=== PATIENT | male | born 1960 | race Caucasian/White ===

== ENCOUNTER 2019-07-03 06:42 | Day surgery (SDC) | payer SELFPAY ==
[~2019-07-03 06:42] MED LIST: Lactated Ringers 1,000 ML IV SCH
--- NOTE | 2019-07-03 08:03 | PCM.PREANE ---
Preanesthetic Assessment - Anesthesia/Transfusion/Family Hx Anesthesia History: Prior Anesthesia Without Reaction Family History of Anesthesia Reaction: No Transfusion History: No Prior Transfusion(s) Intubation History: Unknown - Review of Systems General: No Symptoms Pulmonary: No Symptoms Cardiovascular: No Symptoms Gastrointestinal: No Symptoms Neurological: No Symptoms Other: Reports: None - Physical Assessment Height: 5 ft 11 in Weight: 80.739 kg ASA Class: 1 Mental Status: Alert & Oriented x3 Airway Class: Mallampati = 1 Dentition: Reports: Dentures (upper) Thyro-Mental Finger Breadths: 3 Mouth Opening Finger Breadths: 3 ROM/Head Extension: Full Lungs: Clear to Auscultation, Normal Respiratory Effort Cardiovascular: Regular Rate, Regular Rhythm - Allergies Allergies/Adverse Reactions: Allergies Allergy/AdvReac Type Severity Reaction Status Date / Time meperidine [From Demerol] Allergy Redness Verified 07/03/19 07:58 - Blood Blood Available: No - Anesthesia Plan Pre-Op Medication Ordered: None - Acknowledgements Anesthesia Type Planned: MAC Pt an Appropriate Candidate for the Planned Anesthesia: Yes Alternatives and Risks of Anesthesia Discussed w Pt/Guardian: Yes Pt/Guardian Understands and Agrees with Anesthesia Plan: Yes PreAnesthesia Questionnaire HEENT History: Reports: Hard of Hearing, Other (See Below) Other HEENT History: wears glasses/contacts, upper denture Cardiovascular History: Reports: None Respiratory History: Reports: None Gastrointestinal History: Reports: None Genitourinary History: Reports: None Musculoskeletal History: Reports: Fracture Other Musculoskeletal History: hx fx ribs, wrist, collarbone and fingers Neurological History: Reports: None Psychiatric History: Reports: None Endocrine/Metabolic History: Reports: None Hematologic History: Reports: None Immunologic History: Reports: None Oncologic (Cancer) History: Reports: None Dermatologic History: Reports: None - Past Surgical History Head Surgeries/Procedures: Reports: None HEENT Surgical History: Reports: None Cardiovascular Surgical History: Reports: None Respiratory Surgical History: Reports: None GI Surgical History: Reports: None Male Surgical History: Reports: None Endocrine Surgical History: Reports: None Neurological Surgical History: Reports: None Musculoskeletal Surgical History: Reports: Arthroscopic Knee (bilateral), Other (See Below) Other Musculoskeletal Surgeries/Procedures:: ACL repair both knees (open) Oncologic Surgical History: Reports: None Dermatological Surgical History: Reports: Other (See Below) (FS biopsy of facial lesion by Dr lucas) - SUBSTANCE USE Smoking Status *Q: Former Smoker (quit ) Tobacco Use Within Last Twelve Months: No Days Per Week of Alcohol Use: 7 Number of Drinks Per Day: 2 Total Drinks Per Week: 14 - HOME MEDS Home Medications: Home Meds . [No Known Home Meds] 06/27/19 [History] - CURRENT (IN HOUSE) MEDS Current Meds: Current Medications Lactated Ringer's (Ringers, Lactated) 1,000 mls @ 125 mls/hr IV ASDIRECTED [facility] Last Admin: 07/03/19 07:58 Dose: 125 mls/hr
[2019-07-03] MEDS ORDERED: Bupivacaine 0.25% 10 ML SDV ONE (08:27)
[2019-07-03] MEDS ORDERED: Bupivacaine 0.25%/EPINEPHrine 1:200,000 10 ML SDV ONE ×2 (08:28→09:00)
[2019-07-03] MEDS ORDERED: fentaNYL 100 MCG/2 ML SDV ONE (08:41)
[2019-07-03] MEDS ORDERED: Midazolam 1 MG/ML 2 ML SDV ONE (08:41)
[2019-07-03] MEDS ORDERED: Propofol 200 MG/20 ML SDV ONE (08:41)
[2019-07-03] MEDS ORDERED: Ondansetron 4 MG/2 ML SDV ONE (08:41)
[2019-07-03] MEDS ORDERED: ceFAZolin 1 GM Vial ONE (08:48)
[2019-07-03] MEDS ORDERED: Sodium Chloride 0.9% 20 ML ONE (08:48)
--- NOTE | 2019-07-03 09:42 | PCM.OPNOTE ---
- General Post-Op/Procedure Note Date of Surgery/Procedure: 07/03/19 Operative Procedure(s): excisional biopsy face mass Findings: a mass of 2X2 cm, excised w generous 5 mm margin, plasty closing;see [id number] Pre Op Diagnosis: large face mass Post-Op Diagnosis: Same Anesthesia Technique: Moderate Sedation Primary Surgeon: Marty Loya Pathology: sent Complications: None Condition: Good
--- NOTE | 2019-07-03 11:10 | PCM.POSTAN ---
POST ANESTHESIA ASSESSMENT - MENTAL STATUS Mental Status: Alert, Oriented - VITAL SIGNS Vital Signs: Last Vital Signs Temp 36.0 C L 07/03/19 09:35 Pulse 56 L 07/03/19 09:45 Resp 16 07/03/19 09:45 BP 123/84 07/03/19 09:45 Pulse Ox 99 07/03/19 09:45 - RESPIRATORY Respiratory Status: Respiratory Rate WNL, Airway Patent, O2 Saturation Stable - CARDIOVASCULAR CV Status: Pulse Rate WNL, Blood Pressure Stable - GASTROINTESTINAL GI Status: No Symptoms - PAIN Pain Score: 0 - POST OP HYDRATION Hydration Status: Adequate & Stable - OBSERVATIONS Free Text/Narrative:: No anesthesia problems, patient skipped recovery room stage of postoperative care.
--- NOTE | 2019-07-03 11:10 | PCM48HPAN ---
Post Anesthesia Note - EVALUATION WITHIN 48HRS OF ANESTHETIC Vital Signs in Normal Range: Yes Patient Participated in Evaluation: Yes Respiratory Function Stable: Yes Airway Patent: Yes Cardiovascular Function Stable: Yes Hydration Status Stable: Yes Pain Control Satisfactory: Yes Nausea and Vomiting Control Satisfactory: Yes Mental Status Recovered: Yes Vital Signs: Last Vital Signs Temp 36.0 C L 07/03/19 09:35 Pulse 56 L 07/03/19 09:45 Resp 16 07/03/19 09:45 BP 123/84 07/03/19 09:45 Pulse Ox 99 07/03/19 09:45 - COMMENTS/OBSERVATIONS Free Text/Narrative:: No anesthesia problems
--- NOTE | 2019-07-03 16:24 | OR ---
SURGEON: Marty Loya MD DATE OF PROCEDURE: 07/03/2019 PREOPERATIVE DIAGNOSIS: Face mass. POSTOPERATIVE DIAGNOSIS: Face mass. PROCEDURES PERFORMED: 1. Excisional biopsy of the face mass. 2. Plasty repair of the wound. PRIMARY SURGEON: Marty Loya MD COMPLICATIONS: None. FINDINGS: A face mass which is about 2 cm from the right eye at the temporal area. The wound is about 4 x 2.8 cm wide and required plasty closing because of too much skin loss. DESCRIPTION OF PROCEDURE: The patient was taken to the operating room and placed in the supine position. Upon induction of mild general sedation, the patient's right temporal area and the face area and around the eye area were prepped and draped in sterile fashion. A piece of cotton was placed in the ear to protect the ear. Local anesthetic was infiltrated. A fish eye incision was made around the mass with a generous margin, 5 mm from the mass. Of course because of the close proximity to the eyelid and also was about 2 cm from the right extremity of the right eye, so extreme care was exercised to avoid getting too close to the eyelid. Local anesthetic with epi was infiltrated, and then using a 15 blade, a skin incision was made which excised the whole area and sent for pathology. The specimen was orientation marked with a long-long stitch as lateral and a short-short stitch as medial. Good hemostasis performed with hand pressure. The incision was about 4 x 2.5 cm, and because there was a lot of skin loss, the area was mobilized on the skin in order to be able to pull the skin to close. So the procedure also involved plasty closing using a 5-0 Prolene and followed with sterile strip an appropriate dressing. The patient was awakened, transferred to recovery room in hemodynamically stable condition. The patient tolerated the procedure well. There were no intraoperative complications. Dr. Loya was present through the whole procedure. MARITZA / TAMIKA /[id number] MTDMichelle
== END 2019-07-03 09:52 | disposition home or self-care (01) ==
LOC: MW.SDS 06:42
PROVIDERS: ATTEND Surgery
DX: C44.309 Unspecified malignant neoplasm of skin of other parts of face (principal); L57.0 Actinic keratosis; Z88.5 Allergy status to narcotic agent; Z87.891 Personal history of nicotine dependence
CPT/HCPCS: 11643; 88305; J0690; J2250; J2405; J2704; J3010; J3490; J7120; 00300

== ENCOUNTER 2020-09-15 17:40 | Emergency (ER) | payer SELFPAY ==
--- NOTE | 2020-09-15 18:26 | EDM.PDOC ---
ED HPI GENERAL MEDICAL PROBLEM - General Chief Complaint: Upper Extremity Injury/Pain Stated Complaint: RT SIDE COLLAR BONE BROKE Time Seen by Provider: 09/15/20 18:20 Source of Information: Reports: Patient History Limitations: Reports: No Limitations - History of Present Illness INITIAL COMMENTS - FREE TEXT/NARRATIVE: HISTORY AND PHYSICAL: History of present illness: Patient is a 60-year-old male who presents to the emergency room with complaints of right clavicle and shoulder pain. He states he went to close the tailgate on his truck when he felt a pain in the proximal clavicle and at the shoulder girdle itself. He denies any injury, trauma or falls. He states he can feel the pain radiate up into his neck and down his tricep into his forearm. He states the pain is mild but worsened with movement. Review of systems: As per history of present illness and below otherwise all systems reviewed and negative. Past medical history: As per history of present illness and as reviewed below otherwise noncontributory. Surgical history: As per history of present illness and as reviewed below otherwise noncontributory. Social history: See social history for further information Family history: As per history of present illness and as reviewed below otherwise noncontributory. Physical exam: General: Well developed and well nourished. Alert and orientated x 3. Nontoxic in appearance and in no acute distress. Vital signs are stable and have been reviewed by me. Nursing notes were reviewed. HEENT: Atraumatic, normocephalic, pupils equal and reactive bilaterally, negative for conjunctival pallor or scleral icterus, mucous membranes moist, TMs normal bilaterally, throat clear, neck supple, nontender, trachea midline. No drooling or trismus noted. No meningeal signs. No hot potato voice noted. Lungs: Clear to auscultation bilaterally. No wheezes, rales, or rhonchi. Chest nontender. Normal work of breathing, no accessory muscles used. Heart: S1S2, regular rate and rhythm without overt murmur, gallops, or rubs. No JVD. No peripheral edema Abdomen: Soft, nondistended, nontender. Normoactive bowel sounds. Negative for masses or costovertebral tenderness. Pelvis: Stable nontender. Genitourinary/Rectal: Deferred. Skin: Intact, warm, dry. No lesions or rashes noted. Hematologic: No petechiae or purpra. Mucosa appropriate color and normal nail bed color and refill. Extremities: Atraumatic, moves all extremities per self without difficulty or deficits, negative for cords or calf pain. Neurovascular unremarkable. Neuro: Awake, alert, oriented. Cranial nerves II through XII unremarkable. Cerebellum unremarkable. Motor and sensory unremarkable throughout. Exam nonfocal. Psychiatric: Mood and affect are appropriate. Normal thought process. Answering questions appropriately. Notes: *This patient was seen and evaluated during the 2019 SARS-CoV-2 novel coronavirus pandemic period. Community viral transmission is ongoing at time of this encounter and the emergency department is operating under pandemic response procedures. Patient is a 60-year-old male who presents to the emergency room with concerns he has broken his right clavicle. He states there was no actual injury involved but occurred after he was closing the tailgate on his truck. He has tenderness with palpation of the proximal right clavicle and around the shoulder girdle of the right upper extremity. He denies any previous injury of the affected extremity. He denies any chest pain or pain with palpation of the chest. He states he would like and x-ray. We did discuss doing further diagnostics but he declines. X-ray shows no acute findings. I have talked with the patient about today's findings, in addition to providing specific details for plan of care. [place] ssessment at the time of disposition demonstrates that the patient is in no acute distress. The patient is stable for discharge, counseling was provided and we discussed in great detail signs and symptoms that would prompt them to return to the Emergency Department. Medication, follow up and supportive care measures were reviewed and discussed. Voices understanding and is agreeable to plan of care. Denies any further questions or concerns at this time. Diagnostics: Shoulder/clavicle x-ray Therapeutics: Sling Prescription: Impression: Shoulder pain Plan: 1. You were evaluated today on an emergent basis. Your x-ray shows no acute findings. 2. You can alternate Tylenol and ibuprofen as needed for pain and fever management. 3. We encourage you to follow up with your primary care provider and/or recommended specialist in the next few days for re-evaluation and further care/management. 4. If your symptoms should worsen, new symptoms develop or any of the signs and symptoms we discussed should arise please return to the emergency room or call 911 (if needed). Definitive disposition and diagnosis as appropriate pending reevaluation and review of above. right collar bone and shoulder Pain Score (Numeric/FACES): 6 - Related Data Allergies Allergy/AdvReac Type Severity Reaction Status Date / Time meperidine [From Demerol] Allergy Redness Verified 09/15/20 18:21 Home Meds: Home Meds traMADol [Ultram] 50 mg PO Q4H PRN #15 tab 09/15/20 [Rx] Past Medical History HEENT History: Reports: Hard of Hearing, Other (See Below) Other HEENT History: wears glasses/contacts, upper denture Cardiovascular History: Reports: None Respiratory History: Reports: None Gastrointestinal History: Reports: None Genitourinary History: Reports: None Musculoskeletal History: Reports: Fracture Other Musculoskeletal History: hx fx ribs, wrist, collarbone and fingers Neurological History: Reports: None Psychiatric History: Reports: None Endocrine/Metabolic History: Reports: None Hematologic History: Reports: None Immunologic History: Reports: None Oncologic (Cancer) History: Reports: None Dermatologic History: Reports: None - Past Surgical History Head Surgeries/Procedures: Reports: None HEENT Surgical History: Reports: None Cardiovascular Surgical History: Reports: None Respiratory Surgical History: Reports: None GI Surgical History: Reports: None Male Surgical History: Reports: None Endocrine Surgical History: Reports: None Neurological Surgical History: Reports: None Musculoskeletal Surgical History: Reports: Arthroscopic Knee (bilateral), Other (See Below) Other Musculoskeletal Surgeries/Procedures:: ACL repair both knees (open) Oncologic Surgical History: Reports: None Dermatological Surgical History: Reports: Other (See Below) (FS biopsy of facial lesion by Dr lucas) Review of Systems - Review of Systems Review Of Systems: Comprehensive ROS is negative, except as noted in HPI. ED EXAM, GENERAL - Physical Exam Exam: See Below (See dictation) Course - Vital Signs Last Recorded V/S: Last Vital Signs Temp 98.9 F 09/15/20 18:17 Pulse 60 09/15/20 19:51 Resp 14 09/15/20 19:51 BP 160/96 H 09/15/20 19:51 Pulse Ox 98 09/15/20 19:51 Departure - Departure Time of Disposition: 21:00 Disposition: Home, Self-Care 01 Clinical Impression: Shoulder pain Qualifiers: Chronicity: acute Laterality: right Qualified Code(s): M25.511 - Pain in right shoulder - Discharge Information Prescriptions: traMADol [Ultram] 50 mg PO Q4H PRN #15 tab PRN Reason: Pain Instructions: Shoulder Pain, [id number] Referrals: PCP,None [Primary Care Provider] - Forms: ED Department Discharge Additional Instructions: The following information is given to patients seen in the emergency department who are being discharged to home. This information is to outline your options for follow-up care. We provide all patients seen in our emergency department with a follow-up referral. The need for follow-up, as well as the timing and circumstances, are variable depending upon the specifics of your emergency department visit. If you don't have a primary care physician on staff, we will provide you with a referral. We always advise you to contact your personal physician following an emergency department visit to inform them of the circumstance of the visit and for follow-up with them and/or the need for any referrals to a consulting specialist. The emergency department will also refer you to a specialist when appropriate. This referral assures that you have the opportunity for follow-up care with a specialist. All of these measure are taken in an effort to provide you with optimal care, which includes your follow-up. Under all circumstances we always encourage you to contact your private physician who remains a resource for coordinating your care. When calling for follow-up care, please make the office aware that this follow-up is from your recent emergency room visit. If for any reason you are refused follow-up, please contact the Emergency Department at and asked to speak to the emergency department charge nurse. Primary Care [address] [place] [id number] [address] [address] Thank you for choosing the [facility] emergency department in [place] for your medical needs today. It was a pleasure caring for you. Today you were seen in the emergency department for clavicle/shoulder pain. 1. You were evaluated today on an emergent basis. Your x-ray shows no acute findings. You can use the sling for comfort purposes. 2. You can alternate Tylenol and ibuprofen as needed for pain and fever management. 3. We encourage you to follow up with your primary care provider and/or recommended specialist in the next few days for re-evaluation and further care/management. 4. If your symptoms should worsen, new symptoms develop or any of the signs and symptoms we discussed should arise please return to the emergency room or call 911 (if needed).
--- NOTE | 2020-09-15 19:21 | CR ---
Indication: Pain Comparison: None available. Technique: AP and axial views right clavicle were obtained Findings: There is no displaced fracture or dislocation. There is mild acromioclavicular hypertrophic change. The soft tissues are unremarkable. Impression: Mild degenerative changes of the shoulder joint without evidence of acute osseous abnormality. Dictated by Vic Ling MD @ 09/15/2020 7:19:[address] Vic Ling @ Sep 15 2020 7:19PM
--- NOTE | 2020-09-15 19:23 | CR ---
Indication: Pain Comparison: None available. Technique: AP internal, external rotation, and scapular-Y views right shoulder were obtained Findings: There is no displaced fracture or dislocation. There is mild degenerative change of the acromioclavicular and glenohumeral joint. The soft tissues are unremarkable. Impression: Mild degenerative changes of the acromioclavicular and glenohumeral joint without evidence of displaced fracture. Dictated by Vic Ling MD @ 09/15/2020 7:21:[address] Vic Ling @ Sep 15 2020 7:21PM
== END 2020-09-15 19:52 | disposition home or self-care (01) ==
LOC: MW.ED 17:40
DX: M25.511 Pain in right shoulder (principal); Z88.5 Allergy status to narcotic agent
CPT/HCPCS: 73000-26-RT; 73000-RT; 73030-26-RT; 73030-RT; 99283-25

== ENCOUNTER 2021-11-25 12:33 | Emergency (ER) | payer SELFPAY ==
[2021-11-25] MEDS: Ondansetron 4 MG/2 ML SDV IVPUSH ONE (13:47)
[2021-11-25] MEDS: Meclizine 25 MG Tab PO ONE (13:47)
[2021-11-25 14:37] LABS: CARBON DIOXIDE,CO2 27.3 mmol/L (21.0-32.0); POTASSIUM,K 4.1 mmol/L (3.5-5.1)
== END 2021-11-25 16:10 | disposition home or self-care (01) ==
LOC: MW.ED 12:33
DX: R42 Dizziness and giddiness (principal); Z88.8 Allergy status to other drugs, medicaments and biological substances
CPT/HCPCS: 36415; 80053; 84484; 85025; 96374; 99283; A9270; J2405; 93010

== ENCOUNTER 2024-06-03 08:06 | Day surgery (SDC) | payer BC ==
[~2024-06-03 08:06] MED LIST changes: +Albuterol 0.083% 2.5 MG/3 ML Neb Soln NEB PRN; +HYDROmorphone 1 MG/ML Syringe IVPUSH PRN; -Lactated Ringers 1,000 ML IV SCH; +Metoclopramide 10 MG/2 ML SDV IVPUSH PRN; +Morphine 2 MG/ML SYRINGE IVPUSH PRN; +Naloxone 0.4 MG/ML SDV IVPUSH PRN; +Ondansetron 4 MG/2 ML SDV IVPUSH PRN; +Phenylephrine HCl In 0.9% NaCl 1 MG/10 ML Syringe IVPUSH PRN; +fentaNYL 50 MCG/ML SDV IVPUSH PRN
[2024-06-03] MEDS: Lactated Ringers 1,000 ML IV SCH (08:34)
[2024-06-03] MEDS ORDERED: Propofol 200 MG/20 ML SDV ONE (09:59)
[2024-06-03] MEDS ORDERED: fentaNYL 250 MCG/5 ML SDV ONE (10:00)
[2024-06-03] MEDS ORDERED: Bupivacaine 0.5% 30 ML SDV ONE (10:00)
[2024-06-03] MEDS ORDERED: ePHEDrine 50 MG/ML SDV ONE (11:17)
[2024-06-03] MEDS ORDERED: Ondansetron 4 MG/2 ML SDV ONE (11:17)
[2024-06-03] MEDS ORDERED: Succinylcholine/Sod PF 100 MG/5 ML SYRINGE IV ONE (11:17)
[2024-06-03] MEDS ORDERED: Acetaminophen/HYDROcodone 325-5 MG Tab PO PRN (11:31)
[2024-06-03] MEDS ORDERED: Lactated Ringers 1,000 ML IV SCH (11:45)
== END 2024-06-03 12:30 | disposition home or self-care (01) ==
LOC: MW.SDS 08:06
PROVIDERS: ATTEND Surgery
DX: C76.0 Malignant neoplasm of head, face and neck (principal); L82.1 Other seborrheic keratosis; L81.4 Other melanin hyperpigmentation; Z88.8 Allergy status to other drugs, medicaments and biological substances
CPT/HCPCS: 11643; 12053; J0665; J2405; J2704; J3010; J7120; 00300; J3490